=== PATIENT | female | born 1995 | race African-American/Black ===

== ENCOUNTER 2016-08-22 11:46 | Emergency (ER) | payer SELFPAY ==
[~2016-08-22] VITALS: Ht 170.2 cm; Wt 80.0 kg
[2016-08-22 11:47] VITALS: BP 120/70; PULSE 90; RESP 20; TEMP 97.5; O2SAT 100
--- NOTE | 2016-08-22 12:15 | PD ---
Physical Exam Date Seen by Provider: Aug 22, 2016 Time Seen by Provider: 12:12 Narrative Pt is a 21 year old female presenting to the ED with c/o of a sore throat. She states she has sores in the back of her throat. This has been ongoing for a week , Pt states her pain is a 5/10. VSS, pt waiting for bed placement. Data Data Last Documented VS Vital Signs Date Time Temp Pulse Resp B/P Pulse Ox O2 Delivery O2 Flow Rate FiO2 08/22/16 11:47 97.5 90 20 120/70 100 Room Air MDM Supervised Visit with [facility]: Charo Basurto Aug 22, 2016 12:15
[2016-08-22] MEDS ORDERED: cefTRIAXone 250 MG VIAL IM ONE (13:45)
[2016-08-22] MEDS ORDERED: metroNIDAZOLE 500 MG TAB PO ONE (13:45)
[2016-08-22] MEDS ORDERED: LIDOCAINE HCL 1% 50 ML VIAL IM ONE (13:45)
--- NOTE | 2016-08-22 13:47 | PD ---
HPI Chief Complaint: ENT Complaint Time Seen by Provider: 13:43 Travel History International Travel<30 days: No Contact w/Intl Traveler<30days: No Traveled to known affect area: No History of Present Illness HPI Patient is a 21-year-old female presenting to emergency department for evaluation of a sore throat, and vaginal discharge. She states she had unprotected sex with a person known to have genital herpes. Patient performed oral sex on this person is concerned that she has herpes in her throat. Patient reports a sore throat for approximately one week, the throat is more sore upon awakening and improves throughout the day. Patient states she's had foul-smelling vaginal discharge for the last several days. She denies any abdominal pain, dysuria. [facility] Past Medical History Medical History: Denies Significant Hx ?: Not LMP: 07/09/16 Social History Alcohol Use: No Tobacco Use: No Substance Use: No Allergies-Medications (Allergen,Severity, Reaction): Coded Allergies: No Known Allergies (Unverified , 08/22/16) Reported Meds & Prescriptions Reported Meds & Active Scripts Active No Active Prescriptions or Reported Medications Review of Systems Except as stated in HPI: all other systems reviewed are Neg General / Constitutional: No: Fever, Chills HENT: Positive: Sore Throat, Rhinorrhea Genitourinary: Positive: Discharge, No: Dysuria, Pelvic Pain, Flank Pain, Vaginal Bleeding Physical Exam Narrative GENERAL: Developed, well-nourished, alert female. Resting comfortably in no acute distress. SKIN: Focused skin assessment warm/dry. HEAD: Atraumatic. Normocephalic. EYES: Pupils equal and round. No scleral icterus. No injection or drainage. ENT: No nasal bleeding or discharge. Mucous membranes pink and moist. Cobblestone appearance to posterior pharynx, mildly erythematous. NECK: Trachea midline. No JVD. CARDIOVASCULAR: Regular rate and rhythm. No murmur appreciated. RESPIRATORY: No accessory muscle use. Clear to auscultation. Breath sounds equal bilaterally. GASTROINTESTINAL: Abdomen soft, non-tender, nondistended. Hepatic and splenic margins not palpable. MUSCULOSKELETAL: No obvious deformities. No clubbing. No cyanosis. No edema. NEUROLOGICAL: Awake and alert. No obvious cranial nerve deficits. Motor grossly within normal limits. Normal speech. PSYCHIATRIC: Appropriate mood and affect; insight and judgment normal. Data Data Last Documented VS Vital Signs Date Time Temp Pulse Resp B/P Pulse Ox O2 Delivery O2 Flow Rate FiO2 08/22/16 11:47 97.5 90 20 120/70 100 Room Air Orders Gc And Chlamydia Pcr (08/22/16 13:40) Wet Prep Profile (08/22/16 13:40) Ua Includes Microscopic (08/22/16 13:40) Metronidazole (Flagyl) (08/22/16 13:45) Ceftriaxone Inj (Rocephin Inj) (08/22/16 13:45) Lidocaine 1% Inj (50 Ml) (Xylocaine 1% I (08/22/16 13:45) Herpes Simplex Virus Culture (08/22/16 13:40) Group A Rapid Strep Screen (08/22/16 13:40) Strep Culture (Group A) (08/22/16 14:50) Labs Laboratory Tests Test 08/22/16 08/22/16 14:20 14:50 Urine Color YELLOW Urine Turbidity CLEAR Urine pH 7.5 Urine Specific [place] 1.017 Urine Protein NEG mg/dL Urine Glucose (UA) NEG mg/dL Urine Ketones NEG mg/dL Urine Occult Blood NEG Urine Nitrite NEG Urine Bilirubin NEG Urine Urobilinogen LESS THAN 2.0 MG/DL Urine Leukocyte Esterase NEG Urine RBC LESS THAN 1 /hpf Urine WBC 1 /hpf Urine Squamous Epithelial 3 /hpf Cells Microscopic Urinalysis Comment Clue Cells (Wet Prep) PRESENT Vaginal Trichomonas (Wet Prep) NONE SEEN Vaginal Yeast (Wet Prep) NONE SEEN MDM Medical Decision Making Medical Screen Exam Complete: Yes Emergency Medical Condition: Yes Interpretation(s) Vital Signs Date Time Temp Pulse Resp B/P Pulse Ox O2 Delivery O2 Flow Rate FiO2 08/22/16 11:47 97.5 90 20 120/70 100 Room Air Differential Diagnosis HSV-2 versus postnasal drip versus versus bacterial vaginosis versus PID versus STD Narrative Course Patient is a 21-year-old female presenting to emergency department for evaluation of vaginal discharge and possible exposure to herpes. Cultures ordered, urinalysis, GC chlamydia ordered. GENITOURINARY: No dysuria, no frequency, white, thick vaginal discharge, no bleeding. No cervical motion tenderness, bilateral adnexa without tenderness or masses. Cultures sent, urinalysis pending. Patient treated empirically for chlamydia, gonorrhea, trichomoniasis. Wet prep is positive for clue cells. UA is negative. Patient was encouraged to avoid alcohol while on metronidazole. She is encouraged to follow-up with a primary care provider. Patient was also advised to avoid unprotected sexual activity to avoid transmission of sexually transmitted diseases. Patient verbalized understanding of instructions. Patient is stable for discharge. Diagnosis Primary Impression: Bacterial vaginosis Additional Impression: Sore throat Referrals: Primary Care Physician Patient Instructions: Bacterial Vaginosis (ED), General Instructions, Sexually Transmitted Diseases (ED) Additional Instructions: Follow-up with a primary doctor Return to emergency department for any new or worsening symptoms You will be notified regarding test results if positive Engage in safe sexual practices to avoid transmission of sexually transmitted diseases. Do not drink alcohol while taking metronidazole , it can cause nausea and GI upset Med/Other Pt SpecificInfo: Prescription(s) given Scripts Metronidazole 500 Mg [id number] Mg PO BID #14 TAB Ref 0 Prov:Charo Cody 08/22/16 Disposition: 01 DISCHARGE HOME Condition: Stable Charo Cody Aug 22, 2016 13:47
[2016-08-22 15:21] LABS: BLOOD, URINE NEG (NEG); GLUCOSE,URINE NEG (NEG); KETONE, URINE NEG (NEG); NITRITE,URINE NEG (NEG); PH, URINE 7.5 (5.0-8.5); SQUAMOUS EPITHELIAL CELL URINE 3 /hpf (0-5); URINE COLOR YELLOW (YELLW/STRAW)
[2016-08-22] MEDS ORDERED: METR500T10 PO (15:52)
[2016-08-22 17:02] LABS: CHLAMYDIA PCR NOT DETECTED (NOT DETECT); NEISSERIA PCR NOT DETECTED (NOT DETECT)
== END 2016-08-22 16:00 | disposition home or self-care (01) ==
LOC: NETRI 11:46
DX: N76.0 Acute vaginitis (principal); J02.9 Acute pharyngitis, unspecified
CPT/HCPCS: 81001; 87081; 87210; 87255; 87491; 87591; 87880; 96372; 99283; J0696